=== PATIENT | female | born 1960 | race Caucasian/White ===

== ENCOUNTER 2017-06-11 20:42 | Emergency (ER) | payer SELFPAY ==
[~2017-06-11] VITALS: Ht 160 cm; Wt 68.0 kg
[~2017-06-11 20:42] MED LIST: BLOOD GLUCOSE1 EAC2; INSUASPI; INSULANPEN SC; LISI20 PO; RXTRAM50 PO; TRAM50 PO
[2017-06-11 22:01] LABS: BASOPHILS ABSOLUTE AUTO 0.02 K/mm3 (0.00-0.23); BASOPHILS PERCENT AUTO 0 % (0-2); EOSINOPHILS PERCENT AUTO 0 % (0-6); Hematocrit 48.1 % (33.0-51.0); Hemoglobin 16.4 g/dL (11.5-16.0); IMMATURE GRAN ABSOLUTE AUTO 0.06 K/mm3 (0.00-0.10); IMMATURE GRAN PERCENT AUTO 0 % (0-1); LYMPHOCYTES ABSOLUTE AUTO 0.84 K/mm3 (0.84-5.20); LYMPHOCYTES PERCENT AUTO 6 % (21-46); MONOCYTES ABSOLUTE AUTO 1.38 K/mm3 (0.16-1.47); MONOCYTES PERCENT AUTO 10 % (4-13); Mean Corpuscular HGB 29.8 pg (26.0-34.0); Mean Corpuscular HGB Conc 34.1 g/dL (31.5-36.5); Mean Corpuscular Volume 88 fL (80-100); Mean Platelet Volume 11.9 fL (9.1-12.4); NEUTROPHILS ABSOLUTE AUTO 11.23 K/mm3 (1.96-9.15); NEUTROPHILS PERCENT AUTO 83 % (41-73); Platelet Count 160 K/mm3 (150-400); RDW Coefficient Variation 13.8 % (11.7-14.2); RDW Standard Deviation 44.6 fL (35.1-46.3); White Blood Cell Count 13.53 K/mm3 (4.00-11.30)
[2017-06-11 22:22] LABS: Alanine Aminotransfer (ALT/SGP 21 U/L (12-78); Albumin, Blood 3.7 g/dL (3.4-5.0); Albumin/Globulin Ratio 0.9 (0.8-1.8); Alk Phos 87 U/L (50-136); Anion Gap 9 mmol/L (6-16); Aspartate Aminotrans (AST/SGOT 18 U/L (12-37); Bilirubin, Total 0.5 mg/dL (0.1-1.0); Blood Urea Nitrogen 13 mg/dL (8-24); Bun/Creatinine Ratio 19.7 (12.0-20.0); CO2, Blood 26 mmol/L (21-32); Calcium, Blood 8.6 mg/dL (8.5-10.1); Chloride, Blood 98 mmol/L (98-108); Creatinine, Blood 0.66 mg/dL (0.40-1.00); Globulin, Blood 4.3 g/dL (2.2-4.0); Glomerular Filtration Rate >60 (60-); Glucose, Blood 336 mg/dL (70-99); Potassium, Blood 3.5 mmol/L (3.5-5.5); Sodium, Blood 133 mmol/L (136-145)
[2017-06-12 02:12] LABS: Influenza A Negative (NEGATIVE); Influenza B Positive (NEGATIVE)
[2017-06-12 02:34] LABS: Source, Urine Clean Catch
[2017-06-12 02:36] LABS: Bilirubin, Urine Neg (Neg); Blood, Urine 2+ (Neg); Glucose Qualitative, Urine 4+ (Neg); Ketones, Urine 4+ (Neg); Leukocyte Esterase, Urine Neg (Neg); Nitrite, Urine Neg (Neg); Protein, Urine 4+ (Neg); Specific Gravity, Urine 1.025 (1.003-1.022); Urobilinogen, Urine 1+ (Normal)
[2017-06-12 02:41] LABS: Appearance, Urine Clear (Clear); Color, Urine Yellow (P-Yellow)
[2017-06-12] MEDS ORDERED: Zofran Odt4 MG PO (02:41)
[2017-06-12 02:42] LABS: Bacteria Mod /hpf; Granular Casts 0-2 /lpf (0); Hyaline Casts 0-2 /lpf (0-2); Red Blood Cells, Urine 0-2 /hpf (0-2); Squamous Epithelial Cells Few /hpf (Few); WBC Cast 0-2 /lpf (0)
== END 2017-06-12 03:00 | disposition home or self-care (01) ==
LOC: ER 20:42
PROVIDERS: Emergency Medicine
DX: J10.1 Influenza due to other identified influenza virus with other respiratory manifestations (principal); Z88.5 Allergy status to narcotic agent; I10 Essential (primary) hypertension; Z88.8 Allergy status to other drugs, medicaments and biological substances
CPT/HCPCS: 36415; 71045; 80053; 81001; 82947; 85025; 87086; 87804; 93005; 93010; 96361; 96374; 99283; J2405; J7030

== ENCOUNTER → 2023-02-25 | Outpatient (CLI) | payer OTHER ==
[~2023-02-25] MED LIST changes: +Zofran Odt4 MG PO
[2023-03-01 11:27] LABS: Stool Occult Bld Immuno 1 Positive (NEGATIVE); Stool Occult Bld Immuno 2 Negative (NEGATIVE); Stool Occult Bld Immuno 3 Positive (NEGATIVE)
== END ==
LOC: LAB 20:50 → LAB SHORT 20:50
PROVIDERS: Nurse Practitioner Family
DX: Z11.4 Encounter for screening for human immunodeficiency virus [HIV] (principal); R63.4 Abnormal weight loss; R53.83 Other fatigue; R68.89 Other general symptoms and signs
CPT/HCPCS: G0328

== ENCOUNTER → 2024-11-12 | Outpatient (CLI) | payer OTHER ==
[2024-11-12 18:03] LABS: Bilirubin, Urine Neg (Neg); Color, Urine Yellow (P-Yellow); Glucose Qualitative, Urine 4+ (Neg); Ketones, Urine Neg (Neg); Leukocyte Esterase, Urine 3+ (Neg); Protein, Urine 2+ (Neg); Specific Gravity, Urine 1.015 (1.003-1.022); Urobilinogen, Urine NORM (Normal)
[2024-11-12 18:11] LABS: White Blood Cells, Urine TNTC /hpf (0-5)
== END ==
LOC: LAB SHORT 13:18 → LAB 13:18
PROVIDERS: Nurse Practitioner Family
DX: R35.0 Frequency of micturition (principal); N39.0 Urinary tract infection, site not specified; R10.2 Pelvic and perineal pain
CPT/HCPCS: 81001; 87077; 87086; 87186

== ENCOUNTER 2024-12-18 17:35 | Emergency (ER) | payer OTHER ==
[~2024-12-18] VITALS: Ht 160 cm; Wt 50.8 kg
[2024-12-18] MEDS ORDERED: METF500 PO (18:21)
[2024-12-18] MEDS ORDERED: Ondansetron HCl 2 MG / ML 2ML Vial IV ONE (18:30)
[2024-12-18 18:44] LABS: pH Blood Venous 7.47 (7.34-7.37)
[2024-12-18 18:52] LABS: BASOPHILS ABSOLUTE AUTO 0.11 K/mm3 (0.00-0.23); BASOPHILS PERCENT AUTO 1 % (0-2); EOSINOPHILS ABSOLUTE AUTO 0.09 K/mm3 (0.00-0.68); EOSINOPHILS PERCENT AUTO 0 % (0-6); Hematocrit 45.3 % (33.0-51.0); Hemoglobin 15.7 g/dL (11.5-16.0); IMMATURE GRAN ABSOLUTE AUTO 0.19 K/mm3 (0.00-0.10); IMMATURE GRAN PERCENT AUTO 1 % (0-1); LYMPHOCYTES ABSOLUTE AUTO 2.70 K/mm3 (0.84-5.20); LYMPHOCYTES PERCENT AUTO 12 % (21-46); MONOCYTES ABSOLUTE AUTO 1.69 K/mm3 (0.16-1.47); MONOCYTES PERCENT AUTO 8 % (4-13); Mean Corpuscular HGB Conc 34.7 g/dL (31.5-36.5); Mean Corpuscular Volume 88 fL (80-100); NEUTROPHILS ABSOLUTE AUTO 17.89 K/mm3 (1.96-9.15); NEUTROPHILS PERCENT AUTO 79 % (41-73); NRBC ABSOLUTE 0.00 K/mm3 (0.00-0.02); NRBC Auto 0.0 /100 WBC (0.0-0.2); Platelet Count 284 K/mm3 (150-400); RDW Coefficient Variation 13.9 % (11.7-14.2); RDW Standard Deviation 44.8 fL (35.1-46.3)
[2024-12-18 19:13] LABS: Alanine Aminotransfer (ALT/SGP 26.0 U/L (12-78); Albumin, Blood 4.2 g/dL (3.4-5.0); Albumin/Globulin Ratio 1.2 (0.8-1.8); Anion Gap 15.0 mmol/L (3-11); Aspartate Aminotrans (AST/SGOT 18.0 U/L (12-37); Bilirubin, Total 0.6 mg/dL (0.1-1.0); Blood Urea Nitrogen 22.0 mg/dL (8-24); CO2, Blood 22.0 mmol/L (21-32); Calcium, Blood 9.6 mg/dL (8.5-10.1); Chloride, Blood 103.0 mmol/L (98-108); Creatinine, Blood 0.5 mg/dL (0.40-1.00); Globulin, Blood 3.6 g/dL (2.2-4.0); Glucose, Blood 190.0 mg/dL (70-99); Potassium, Blood 3.7 mmol/L (3.5-5.5); Sodium, Blood 136.0 mmol/L (136-145); Total Protein, Blood 7.8 g/dL (6.4-8.2)
[2024-12-18 23:24] LABS: Source, Urine Clean Catch
[2024-12-18] MEDS ORDERED: NS 1,000 ML IV SCH (23:25)
[2024-12-18 23:28] LABS: Bilirubin, Urine Neg (Neg); Glucose Qualitative, Urine 4+ (Neg); Ketones, Urine 4+ (Neg); Leukocyte Esterase, Urine Neg (Neg); Protein, Urine 3+ (Neg); Specific Gravity, Urine 1.025 (1.003-1.022); Urobilinogen, Urine NORM (Normal)
[2024-12-18 23:29] LABS: Color, Urine Yellow (P-Yellow)
[2024-12-18 23:35] LABS: Red Blood Cells, Urine 0-2 /hpf (0-2); White Blood Cells, Urine 0-2 /hpf (0-5)
[2024-12-19] MEDS ORDERED: RX Prepack 6 Tabs Oxycodone 5mg UD ONE ×2 (00:20→00:30)
[2024-12-19 00:30] VITALS: BP 161/98
== END 2024-12-19 00:55 | disposition home or self-care (01) ==
LOC: ER 17:35
PROVIDERS: Student in an Organized Health Care Education/Training Program
DX: S30.0XXA Contusion of lower back and pelvis, initial encounter (principal); I10 Essential (primary) hypertension; E11.65 Type 2 diabetes mellitus with hyperglycemia; R19.7 Diarrhea, unspecified; W18.30XA Fall on same level, unspecified, initial encounter
CPT/HCPCS: 72100; 80053; 81001; 82010; 82803; 85025; 96374; 99285-25; A9270; J2405

== ENCOUNTER → 2025-01-02 | Outpatient (CLI) | payer OTHER ==
[~2025-01-02] MED LIST changes: +METF500 PO
== END ==
LOC: LAB 13:15 → LAB SHORT 13:15
DX: E86.0 Dehydration (principal); R30.0 Dysuria
CPT/HCPCS: 87086